=== PATIENT | female | born 1940 | race Caucasian/White ===

== ENCOUNTER 2018-12-12 13:15 | Emergency (ER) | payer OTHER ==
[~2018-12-12] VITALS: Ht 149.9 cm; Wt 78.9 kg
[~2018-12-12 13:15] MED LIST: CIPRO500 MG PO; COLACE100 MG PO; INTESTINEX1 CA1 PO; PERCOCET 5/3251 TAB PO; PROTONIX40 MG PO
[2018-12-12] MEDS ORDERED: METFORMIN HCL500 M2 (13:39)
== END 2018-12-12 20:00 | disposition home or self-care (01) ==
LOC: ER 13:15
DX: J09.X2 Influenza due to identified novel influenza A virus with other respiratory manifestations (principal); J45.998 Other asthma

== ENCOUNTER 2021-08-29 08:55 | Emergency (ER) | payer OTHER ==
[~2021-08-29] VITALS: Ht 152.4 cm; Wt 72.6 kg
[~2021-08-29 08:55] MED LIST changes: +METFORMIN HCL500 M2
[2021-08-29] MEDS ORDERED: PREDNISONE 5MG (09:07)
[2021-08-29] MEDS ORDERED: AZITHROMYCIN250 MG (09:08)
[2021-08-29] MEDS ORDERED: THEO-24400 MG PO (09:08)
[2021-08-29] MEDS ORDERED: PEPCID AC20 MG PO (15:16)
[2021-08-29] MEDS ORDERED: PREVACID30 MG PO (15:16)
== END 2021-08-29 16:10 | disposition home or self-care (01) ==
LOC: ER 08:55
DX: K29.70 Gastritis, unspecified, without bleeding (principal); R10.13 Epigastric pain

== ENCOUNTER 2021-12-19 18:13 | Emergency (ER) | payer OTHER ==
[~2021-12-19] VITALS: Ht 152.4 cm; Wt 70.3 kg
[~2021-12-19 18:13] MED LIST changes: +AZITHROMYCIN250 MG; +PEPCID AC20 MG PO; +PREDNISONE 5MG; +PREVACID30 MG PO; +THEO-24400 MG PO
== END 2021-12-19 21:59 | disposition home or self-care (01) ==
LOC: ER 18:13
DX: J44.9 Chronic obstructive pulmonary disease, unspecified (principal); E11.9 Type 2 diabetes mellitus without complications; Z79.84 Long term (current) use of oral hypoglycemic drugs; I10 Essential (primary) hypertension; Z88.0 Allergy status to penicillin

== ENCOUNTER 2023-03-10 09:54 | Emergency (ER) | payer OTHER ==
[~2023-03-10] VITALS: Ht 152.4 cm; Wt 72.6 kg
[~2023-03-10 09:54] MED LIST changes: -METFORMIN HCL500 M2; +METFORMIN HCL500 M2 PO
[2023-03-10] MEDS ORDERED: JARDIANCE10 MG PO (10:26)
[2023-03-10] MEDS ORDERED: ROSUVASTATIN CA10 MG PO (10:28)
[2023-03-10] MEDS ORDERED: PANTOPRAZOLE SO40 MG PO (10:28)
== END 2023-03-10 16:32 | disposition home or self-care (01) ==
LOC: ER 09:54
DX: R10.9 Unspecified abdominal pain (principal); E11.9 Type 2 diabetes mellitus without complications; Z79.84 Long term (current) use of oral hypoglycemic drugs; I10 Essential (primary) hypertension; Z88.0 Allergy status to penicillin

== ENCOUNTER 2024-10-09 13:04 | Inpatient (IN) | payer OTHER ==
[~2024-10-09] VITALS: Ht 152.4 cm; Wt 164.7 kg
[~2024-10-09 13:04] MED LIST changes: +JARDIANCE10 MG PO; +PANTOPRAZOLE SO40 MG PO; +ROSUVASTATIN CA10 MG PO
--- NOTE | 2024-10-09 13:16 | NUR ---
PACIENTE ALERTA Y ORIENTADA X 3. REFIERE 3 SEMANAS CON ASMA. INDICA SER PACIENTE DE COPD. SATURACION EN 93% AL REALIZAR TRIAGE
[2024-10-09] MEDS ORDERED: METHYLPREDNISOLONE SOD SUCC 125 MG VIAL IV ONE ×2 (13:30→14:30)
[2024-10-09] MEDS ORDERED: LEVALBUTEROL HCL 1.25 MG/3 ML SOLUTION IH SCH (13:30)
[2024-10-09] MEDS ORDERED: IPRATROPIUM BROMIDE 0.5 MG/2.5 ML AMPUL.NEB IH SCH ×2 (13:30→18:32)
[2024-10-09] MEDS ORDERED: MAGNESIUM SULFATE IN WATER 2 GM/50 ML PIGGYBAG IV ONE (13:30)
[2024-10-09 14:30] LABS: ABG PH 7.459 (7.35-7.45); ABG PO2 60.3 mmHg (80-100); ABG pCO2 38.3 mmHg (35-45); BASE EXCESS 2.8 mmol/l; BICARBONATE 26.6 mmol/l (23-25); SaO2 92.4 %; Tco2 27.7 mmol/l; allen test SATISFACTORY; o2 28 %; puncture site RADIAL RIGHT
--- NOTE | 2024-10-09 14:38 | NUR ---
SE ORIENTA A PACIENTE SOBRE TRATAMIENTO MEDICO, REFIERE ENTENDER. SE COLECTAN MUESTRAS DE LABORATORIO Y SE CANALIZA A PACIENTE BAJO MEDIDAS ASEPTICAS. SE ADMINISTRAN MEDICAMENTOS ALEXANDRU ORDEN MEDICA. SE NOTIFICAN X-RAY, ABGS Y TERAPIAS RESPIRATORIAS.
--- NOTE | 2024-10-09 15:45 | NUR ---
PTE ALERTA Y ORIENTADA X3 DEL TURNO ANTERIOR EN CAMA CON BARANDAS ELEVADAS. PENDIENTE RESULTADOS DE LAB Y CT DE [facility].
[2024-10-09 15:47] LABS: CALCIUM 9.7 mg/dL (8.5-10.1); CREATININE SERUM 0.76 mg/dL (0.55-1.02); GFR 72.86; POTASSIUM 4.81 mEq/L (3.5-5.1)
[2024-10-09 15:51] LABS: HEMATOCRIT 45.1 % (36.0-45.00); HEMOGLOBIN 15.6 g/dL (12.0-15.00); MEAN CELL VOLUME 89.1 fL (80.00-100.00); MEAN CORPUSCULAR HEMOGLOBIN 30.9 pg (27.00-32.0); MEAN CORPUSCULAR HGB CONC 34.7 g/dl (32.0-36.0); PLATELET COUNT 302 K/uL (150-450); RED BLOOD COUNT 5.06 M/uL (4.00-6.00); RED CELL DISTRIBUTION WIDTH 15.3 % (11.5-14.5)
[2024-10-09] MEDS ORDERED: levoFLOXacin IN DEXTROSE 5 % 500MG/100ML PIGGYBAG IV ONE (18:15)
[2024-10-09] MEDS ORDERED: INSULIN LISPRO 1,000 UNIT/10 ML UNITS SUBCUTANEO PRN (18:30)
[2024-10-09] MEDS ORDERED: DEXTROSE 50 % IN WATER 0.5 G/ML DISP.SYRIN IV PRN (18:30)
[2024-10-09] MEDS ORDERED: LEVALBUTEROL HCL 0.63 MG/3 ML SOLUTION IH SCH (18:31)
[2024-10-09] MEDS ORDERED: RINGERS SOLUTION,LACTATED 1,000 ML IV SCH (18:45)
[2024-10-10] MEDS ORDERED: METHYLPREDNISOLONE SOD SUCC 40 MG VIAL IV SCH (01:00)
[2024-10-10 02:58] LABS: URINE APPEARANCE Clear; URINE BILIRRUBIN Negative (NEGATIVE); URINE BLOOD Small; URINE COLOR Yellow; URINE KETONE Negative (NEGATIVE); URINE LEUKOCYTE Negative; URINE NITRATE Negative; URINE PROTEIN 30 (NEGATIVE); URINE UROBILINOGEN 0.2 E.U./dl
[2024-10-10 03:01] LABS: URINE BACTERIA 223.9 uL (0.0-1933); URINE EPITHELIAL CELLS 32.4 uL (0.0-38.8); URINE RBC 5.3 uL (0.0-20.8); URINE WBC 7.1 uL (0.0-23.2)
[2024-10-10 03:12] LABS: URINE CAST 1.32 uL (0.0-1.40); URINE GLUCOSE >=1000 MG/DL (NEGATIVE)
[2024-10-10 08:06] VITALS: BP 133/74; O2SAT 93
[2024-10-10] MEDS ORDERED: PANTOPRAZOLE SODIUM 40 MG TABLET.DR PO SCH (09:00)
[2024-10-10] MEDS ORDERED: ENOXAPARIN SODIUM 40 MG/0.4 ML SYRINGE SUBCUTANEO SCH (09:00)
[2024-10-10] MEDS ORDERED: levoFLOXacin IN DEXTROSE 5 % 150 ML IV SCH (09:00)
[2024-10-10 16:00] VITALS: BP 123/61; O2SAT 96
[2024-10-10] MEDS ORDERED: LACTOBACILLUS ACIDOPHILUS 1 CAP CAP PO SCH (17:00)
[2024-10-11 00:30] VITALS: BP 117/66; O2SAT 97
[2024-10-11 07:27] LABS: HEMATOCRIT 39.2 % (36.0-45.00); HEMOGLOBIN 13.7 g/dL (12.0-15.00); MEAN CORPUSCULAR HGB CONC 34.8 g/dl (32.0-36.0); PLATELET COUNT 278 K/uL (150-450); RED BLOOD COUNT 4.41 M/uL (4.00-6.00); RED CELL DISTRIBUTION WIDTH 15.3 % (11.5-14.5)
[2024-10-11 07:39] LABS: BILIRUBIN TOTAL 0.58 mg/dL (0.3-1.2); CALCIUM 9.2 mg/dL (8.5-10.1); CREATININE SERUM 0.76 mg/dL (0.55-1.02); GFR 72.86; GLOBULINA 3.3 G/DL (2.4-3.5); MAGNESIUM 1.9 mg/dL (1.8-2.4); PHOSPHOROUS 3.1 mg/dL (2.5-4.9); POTASSIUM 5.06 mEq/L (3.5-5.1); TOTAL PROTEIN 6.3 gm/dL (6.4-8.2)
[2024-10-11 08:00] VITALS: BP 133/74; O2SAT 95
[2024-10-11] MEDS ORDERED: INSULIN LISPRO 1,000 UNIT/10 ML UNITS SUBCUTANEO SCH (08:00)
[2024-10-11] MEDS ORDERED: INSULIN GLARGINE,HUM.REC.ANLOG 1,000 UNITS/10 ML UNITS SUBCUTANEO SCH (09:00)
[2024-10-11 16:00] VITALS: BP 111/62; O2SAT 95
[2024-10-11] MEDS ORDERED: METHYLPREDNISOLONE SOD SUCC 40 MG VIAL IV SCH (21:00)
[2024-10-12] VITALS: BP 129/66; O2SAT 99
[2024-10-12] MEDS ORDERED: LEVALBUTEROL HCL 0.63 MG/3 ML SOLUTION IH SCH (01:00)
[2024-10-12 05:55] LABS: ABG PH 7.407 (7.35-7.45); ABG pCO2 51.3 mmHg (35-45)
[2024-10-12 05:56] LABS: ABG PO2 50.9 mmHg (80-100); BASE EXCESS 5.5 mmol/l; BICARBONATE 31.6 mmol/l (23-25); SaO2 86.5 %; Tco2 33.1 mmol/l; o2 21 %
[2024-10-12 05:57] LABS: allen test SATISFACTORY; puncture site RADIAL LEFT
[2024-10-12 08:00] VITALS: BP 125/62; O2SAT 95
[2024-10-12] MEDS ORDERED: INSULIN LISPRO 1,000 UNIT/10 ML UNITS SUBCUTANEO SCH (08:12)
[2024-10-12] MEDS ORDERED: INSULIN NPH HUMAN ISOPHANE 1,000 UNITS/10 ML UNITS SUBCUTANEO SCH (09:00)
[2024-10-12] MEDS ORDERED: METHYLPREDNISOLONE SOD SUCC 40 MG VIAL IV SCH (09:00)
[2024-10-12 18:10] VITALS: BP 118/81; O2SAT 97
[2024-10-13] VITALS: BP 126/58; O2SAT 96
[2024-10-13 06:51] LABS: HEMATOCRIT 41.1 % (36.0-45.00); HEMOGLOBIN 14.2 g/dL (12.0-15.00); MEAN CELL VOLUME 89.6 fL (80.00-100.00); MEAN CORPUSCULAR HGB CONC 34.6 g/dl (32.0-36.0); PLATELET COUNT 240 K/uL (150-450); RED BLOOD COUNT 4.59 M/uL (4.00-6.00); RED CELL DISTRIBUTION WIDTH 15.2 % (11.5-14.5)
[2024-10-13 07:36] LABS: ALBUMIN 2.9 gm/dL (3.4-5.0); BILIRUBIN TOTAL 0.72 mg/dL (0.3-1.2); CALCIUM 8.9 mg/dL (8.5-10.1); CREATININE SERUM 0.71 mg/dL (0.55-1.02); GFR 78.81; GLOBULINA 3.1 G/DL (2.4-3.5); MAGNESIUM 1.8 mg/dL (1.8-2.4); PHOSPHOROUS 3.2 mg/dL (2.5-4.9); POTASSIUM 4.55 mEq/L (3.5-5.1)
[2024-10-13 09:36] VITALS: BP 130/69; O2SAT 96
[2024-10-13] MEDS ORDERED: LEVOFLOXACIN750 MG PO (14:22)
[2024-10-13] MEDS ORDERED: PANTOPRAZOLE SO40 MG PO (14:23)
[2024-10-13] MEDS ORDERED: INTESTINEX680 M1 PO (14:23)
[2024-10-13] MEDS ORDERED: LEVALBUTER0.63 MG/3 IH (14:24)
[2024-10-13] MEDS ORDERED: MEDROLPACK PO (14:24)
[2024-10-13] MEDS ORDERED: METFORMIN HCL1000 M2 PO (14:25)
== END 2024-10-13 14:49 | disposition home or self-care (01) | DRG 193 ==
LOC: ER 13:06 → SURH 18:36 → SEC-K 18:36 → SURH 10-10 01:24
PROVIDERS: General Practice; ADMIT Internal Medicine; ATTEND Internal Medicine
PROC: BW24YZZ Computerized Tomography (CT Scan) of Chest and Abdomen using Other Contrast (ICD-10-PCS; principal; 2024-10-09)
DX: J18.9 Pneumonia, unspecified organism (principal); J96.01 Acute respiratory failure with hypoxia; J44.1 Chronic obstructive pulmonary disease with (acute) exacerbation; J84.10 Pulmonary fibrosis, unspecified; A49.3 Mycoplasma infection, unspecified site; E11.65 Type 2 diabetes mellitus with hyperglycemia; Z79.4 Long term (current) use of insulin; E78.5 Hyperlipidemia, unspecified